=== PATIENT | female | born 1940 | race Caucasian/White ===

== ENCOUNTER 2019-08-28 11:49 | Inpatient (IN) | payer MEDICARE, MEDICAID ==
[~2019-08-28] VITALS: Ht 154.9 cm; Wt 80.7 kg
[2019-08-28 13:08] LABS: BASOPHILS % 1.1 % (0.0-2.0); HEMATOCRIT. 36.1 % (36.0-48.0); LYMPHOCYTES % 21.2 % (20.0-50.0); MEAN CORPUSCULAR HEMOGLOBIN 31.1 pg (28.0-32.0); MEAN CORPUSCULAR VOLUME 93.5 fL (81.0-99.0); MEAN PLATELET VOLUME 8.4 fl (7.4-10.4); MONOCYTES % 7.7 % (2.0-8.0); PLATELET 274 x1000/uL (130-400); RED BLOOD CELL COUNT 3.86 mill/uL (4.2-5.4); RED CELL DISTRIBUTION WIDTH 14.7 % (11.6-14.6)
[2019-08-28 13:14] LABS: CHLORIDE 105 mEq/L (98-107)
[2019-08-28] MEDS ORDERED: ACETAMINOPHEN 650MG SUPP PR PRN (17:30)
[2019-08-28] MEDS ORDERED: GUAIFENESIN 200MG/10ML SUGAR FREE UDC PO PRN (17:30)
[2019-08-28] MEDS ORDERED: DIPHENHYDRAMINE 50MG/ML VIAL IV PRN (17:30)
[2019-08-28] MEDS ORDERED: NA PHOS,M-B/NA PHOS,DI-BA ENEMA 118ML PR PRN (17:30)
[2019-08-28] MEDS ORDERED: HYDROCODONE/ACETAMINOPHEN 5/325MG TABLET PO PRN (17:30)
[2019-08-28] MEDS ORDERED: CLONIDINE 0.1MG TABLET PO PRN (17:30)
[2019-08-28] MEDS ORDERED: IPRATROPIUM/ALBUTEROL 0.5-3(2.5)MG/3ML NEB NEB PRN (17:30)
[2019-08-28] MEDS ORDERED: DOCUSATE SODIUM 100MG CAPSULE PO PRN (17:30)
[2019-08-28] MEDS ORDERED: MORPHINE SULFATE 2 MG/ML CPJ (NOT FOR IM USE) IV PRN (17:30)
[2019-08-28] MEDS ORDERED: DEXTROSE 50% WATER 50ML SYRINGE IV PRN (17:30)
[2019-08-28] MEDS ORDERED: ACETAMINOPHEN 325MG TABLET PO PRN (17:30)
[2019-08-28] MEDS ORDERED: ONDANSETRON HCL 4MG/2ML INJ IV PRN (17:30)
[2019-08-28] MEDS ORDERED: LORAZEPAM 0.5MG TABLET PO PRN (17:30)
[2019-08-28] MEDS ORDERED: MAGNESIUM/ALUMINUM HYDROXIDE/SIMETHICONE 30ML UDC PO PRN (17:30)
[2019-08-28] MEDS: HYDROCODONE/ACETAMINOPHEN 5/325MG TABLET PO PRN (18:08)
[2019-08-28] MEDS ORDERED: AMLODIPINE 5MG TABLET PO SCH (18:48)
[2019-08-28 19:53] LABS: PROTHROMBIN TIME 10.7 sec (9.6-11.0)
[2019-08-28 23:40] LABS: CREATINE KINASE MB FRACTION 1.4 ng/mL (0.5-3.6)
[2019-08-29 01:00] VITALS: BP 162/77
[2019-08-29 02:00] VITALS: BP 162/77
[2019-08-29] MEDS: HYDROCODONE/ACETAMINOPHEN 5/325MG TABLET PO PRN ×2 (02:12→20:26)
[2019-08-29 04:00] VITALS: BP 122/53
[2019-08-29] MEDS: SODIUM CHLORIDE 0.45% 1,000 ML IV SCH (06:04)
[2019-08-29 07:11] LABS: CHLORIDE 107 mEq/L (98-107)
[2019-08-29] MEDS: BLOOD SUGAR DIAGNOSTIC STRIP TEST SCH ×4 (07:20→20:32)
[2019-08-29 07:25] LABS: LDL CHOLESTEROL 104 mg/dL (5-100)
[2019-08-29 07:27] LABS: CREATINE KINASE 55 IU/L (26-192); CREATINE KINASE MB FRACTION 1.4 ng/mL (0.5-3.6)
[2019-08-29 07:28] LABS: T4 FREE 1.11 ng/dL (0.76-1.46)
[2019-08-29 07:29] LABS: HDL CHOLESTEROL 64 mg/dL (40-59)
[2019-08-29 07:35] LABS: BASOPHILS % 1.1 % (0.0-2.0); HEMATOCRIT. 33.3 % (36.0-48.0); HEMOGLOBIN. 11.3 g/dL (12.0-16.0); MEAN CORPUSCULAR HEMOGLOBIN 31.8 pg (28.0-32.0); MEAN CORPUSCULAR VOLUME 93.4 fL (81.0-99.0); MEAN PLATELET VOLUME 8.3 fl (7.4-10.4); MONOCYTES % 8.4 % (2.0-8.0); NEUTROPHILS % 60.5 % (40.0-76.0); PLATELET 241 x1000/uL (130-400); RED BLOOD CELL COUNT 3.56 mill/uL (4.2-5.4); RED CELL DISTRIBUTION WIDTH 14.5 % (11.6-14.6)
[2019-08-29] MEDS ORDERED: METF-414 PO (08:10)
[2019-08-29] MEDS ORDERED: FURO40TA5 PO (08:11)
[2019-08-29] MEDS ORDERED: CARV3.1242 PO (08:13)
[2019-08-29] MEDS ORDERED: ASPI-1497 PO (08:14)
[2019-08-29] MEDS ORDERED: OMEP40CA12 PO (08:15)
[2019-08-29] MEDS ORDERED: ATOR10TA69 PO (08:16)
[2019-08-29] MEDS ORDERED: GLIP10TA10 PO (08:16)
[2019-08-29] MEDS: INSULIN LISPRO 100 UNITS/ML SUBCUT SCH ×4 (08:20→21:32)
[2019-08-29] MEDS: AMLODIPINE 5MG TABLET PO SCH ×2 (10:07→20:27)
[2019-08-29] MEDS: LOSARTAN POTASSIUM 25 MG TABLET PO SCH (10:09)
[2019-08-29 12:00] VITALS: BP 119/70
[2019-08-29] MEDS ORDERED: REGADENOSON 0.4 MG/5 ML IV NR (15:15)
[2019-08-29 16:10] VITALS: BP 114/67
[2019-08-29] MEDS: ENOXAPARIN 80MG/0.8ML SYR SUBCUT SCH (18:09)
[2019-08-29] MEDS ORDERED: LIRA0.6P SQ (18:47)
[2019-08-29] MEDS ORDERED: INSU300I SQ ×2 (18:47)
[2019-08-29] MEDS ORDERED: BRIM5DRO6 EACHEYE (18:47)
[2019-08-29] MEDS ORDERED: AZOPT EACHEYE (18:47)
[2019-08-29 19:12] LABS: CLARITY URINE CLEAR (CLEAR); COLOR URINE YELLOW (YELLOW); KETONES URINE NEGATIVE (NEGATIVE); LEUKOCYTE ESTERASE URINE NEGATIVE (NEGATIVE); NITRITE URINE NEGATIVE (NEGATIVE); OCCULT BLOOD URINE NEGATIVE (NEGATIVE); PH URINE 5.5 (4.5-8.0); PROTEIN URINE 3+ (NEGATIVE); SPECIFIC GRAVITY URINE 1.018 (1.005-1.030); UROBILINOGEN URINE 0.2 E.U./dL (0.2-1.0)
[2019-08-29 19:22] LABS: *AMPHETAMINES SCREEN URINE NEGATIVE (NEGATIVE); *BARBITURATES SCREEN URINE NEGATIVE (NEGATIVE); *BENZODIAZEPINES SCREEN URINE NEGATIVE (NEGATIVE); *COCAINE SCREEN URINE NEGATIVE (NEGATIVE); CANNABINOID URINE SCREEN NEGATIVE (NEGATIVE); METHADONE URINE SCREEN NEGATIVE (NEGATIVE); PHENCYCLIDINE URINE SCREEN NEGATIVE (NEGATIVE)
[2019-08-29 20:00] VITALS: BP 130/64
[2019-08-29] MEDS: FAMOTIDINE 20MG TABLET PO SCH (20:25)
[2019-08-30] VITALS (8 sets, daily range): BP systolic 92–169; BP diastolic 59–92
[2019-08-30] MEDS: SODIUM CHLORIDE 0.45% 1,000 ML IV SCH ×3 (00:16→21:25)
[2019-08-30] MEDS: ENOXAPARIN 80MG/0.8ML SYR SUBCUT SCH ×2 (03:00→15:16)
[2019-08-30] MEDS: BLOOD SUGAR DIAGNOSTIC STRIP TEST SCH ×4 (06:28→21:24)
[2019-08-30 06:55] LABS: BASOPHILS % 1.3 % (0.0-2.0); EOSINOPHILS % 11.4 % (0.0-5.0); HEMATOCRIT. 33.7 % (36.0-48.0); HEMOGLOBIN. 11.2 g/dL (12.0-16.0); LYMPHOCYTES % 30.3 % (20.0-50.0); MEAN CORPUSCULAR HEMOGLOBIN 31.3 pg (28.0-32.0); MEAN CORPUSCULAR VOLUME 94.1 fL (81.0-99.0); MEAN PLATELET VOLUME 8.3 fl (7.4-10.4); MONOCYTES % 6.8 % (2.0-8.0); NEUTROPHILS % 50.2 % (40.0-76.0); PLATELET 257 x1000/uL (130-400); RED BLOOD CELL COUNT 3.58 mill/uL (4.2-5.4); RED CELL DISTRIBUTION WIDTH 14.7 % (11.6-14.6)
[2019-08-30] MEDS: INSULIN LISPRO 100 UNITS/ML SUBCUT SCH ×4 (07:50→21:23)
[2019-08-30] MEDS: AMLODIPINE 5MG TABLET PO SCH ×3 (08:15→21:24)
[2019-08-30] MEDS: LOSARTAN POTASSIUM 25 MG TABLET PO SCH ×2 (08:15→09:50)
[2019-08-30] MEDS ORDERED: REGADENOSON 0.4 MG/5 ML IV ONE (08:39)
[2019-08-30] MEDS ORDERED: SODIUM CHLORIDE 0.9% 250 ML IV NR (12:45)
[2019-08-30] MEDS: FAMOTIDINE 20MG TABLET PO SCH (21:24)
[2019-08-30] MEDS: HYDROCODONE/ACETAMINOPHEN 5/325MG TABLET PO PRN (21:41)
[2019-08-31 00:32] VITALS: BP 113/45
[2019-08-31 04:00] VITALS: BP 131/53
[2019-08-31 07:14] LABS: BASOPHILS % 0.8 % (0.0-2.0); EOSINOPHILS % 11.1 % (0.0-5.0); HEMOGLOBIN. 10.5 g/dL (12.0-16.0); LYMPHOCYTES % 36.5 % (20.0-50.0); MEAN CORPUSCULAR HEMOGLOBIN 31.4 pg (28.0-32.0); MEAN CORPUSCULAR VOLUME 92.6 fL (81.0-99.0); MEAN PLATELET VOLUME 8.5 fl (7.4-10.4); MONOCYTES % 7.5 % (2.0-8.0); NEUTROPHILS % 44.1 % (40.0-76.0); PLATELET 250 x1000/uL (130-400); RED BLOOD CELL COUNT 3.35 mill/uL (4.2-5.4); RED CELL DISTRIBUTION WIDTH 14.4 % (11.6-14.6)
[2019-08-31] MEDS: BLOOD SUGAR DIAGNOSTIC STRIP TEST SCH ×3 (07:35→17:28)
[2019-08-31 08:00] VITALS: BP_SYST 113; BP_SYST 128; BP_SYST 143; BP_DIAS 43; BP_DIAS 57; BP_DIAS 59
[2019-08-31] MEDS ORDERED: ENOXAPARIN 80MG/0.8ML SYR SUBCUT SCH (09:00)
[2019-08-31] MEDS: LOSARTAN POTASSIUM 25 MG TABLET PO SCH (09:09)
[2019-08-31] MEDS: HYDROCODONE/ACETAMINOPHEN 5/325MG TABLET PO PRN (09:09)
[2019-08-31] MEDS: AMLODIPINE 5MG TABLET PO SCH (09:10)
[2019-08-31] MEDS: INSULIN LISPRO 100 UNITS/ML SUBCUT SCH ×3 (09:14→17:50)
[2019-08-31] MEDS ORDERED: LOV40 SQ (11:20)
[2019-08-31 12:00] VITALS: BP 128/70
[2019-08-31 16:28] VITALS: BP_SYST 146; BP_SYST 147; BP_DIAS 60; BP_DIAS 66
[2019-08-31] MEDS ORDERED: AMLODIPINE 2.5MG TABLET PO SCH (21:00)
[2019-09-03 08:29] LABS: OPIATES URINE SCREEN PRESUMTIVE POSITIVE (NEGATIVE)
== END 2019-08-31 18:30 | disposition home or self-care (01) | DRG 154 ==
LOC: ER 11:49 → EDBEDREQ 14:23 → SUPCPDRO 17:16 → ENRESERV 22:43 → 6WST 08-29 01:30
PROVIDERS: ADMIT Internal Medicine; ATTEND Internal Medicine
PROC: 4A00X4Z Measurement of Central Nervous Electrical Activity, External Approach (ICD-10-PCS; principal; 2019-08-30)
DX: S02.2XXA Fracture of nasal bones, initial encounter for closed fracture (principal); I50.33 Acute on chronic diastolic (congestive) heart failure; I82.441 Acute embolism and thrombosis of right tibial vein; I13.0 Hypertensive heart and chronic kidney disease with heart failure and stage 1 through stage 4 chronic kidney disease, or unspecified chronic kidney disease; G90.8 Other disorders of autonomic nervous system; I95.1 Orthostatic hypotension; E66.9 Obesity, unspecified; E78.5 Hyperlipidemia, unspecified; F41.9 Anxiety disorder, unspecified; E11.22 Type 2 diabetes mellitus with diabetic chronic kidney disease; N18.9 Chronic kidney disease, unspecified; S00.83XA Contusion of other part of head, initial encounter; E78.00 Pure hypercholesterolemia, unspecified; I45.10 Unspecified right bundle-branch block; W18.39XA Other fall on same level, initial encounter; Y93.89 Activity, other specified; Y92.89 Other specified places as the place of occurrence of the external cause; Y99.8 Other external cause status; Z79.82 Long term (current) use of aspirin; Z79.84 Long term (current) use of oral hypoglycemic drugs; Z79.4 Long term (current) use of insulin; Z79.899 Other long term (current) drug therapy
CPT/HCPCS: 36415; 70486; 71045; 72170; 78452; 78582; 80048; 80053; 80061; 80305; 81003; 82550; 82553; 82962; 83036; 83735; 83880; 84439; 84443; 84484; 85025; 93005; 93017; 93306; 93880; 93970; 97162; 99285; A9500; A9558; J1650; J1815; J2405; J2785